=== PATIENT | male | born 1965 | race Caucasian/White ===

== ENCOUNTER 2024-10-11 15:20 | Inpatient (IN) | payer MEDICARE, BC ==
--- NOTE | 2024-10-11 15:57 | ED ---
General Adult HPI - General Chief complaint: Abdominal Pain Stated complaint: abd pain Time Seen by Provider: 10/11/24 15:26 Source: EMS Mode of arrival: EMS - History of Present Illness Initial comments: Dictation was produced using [employer] dictation software. please excuse any gram matical, word or spelling errors. Chief Complaint: 59-year-old male transfer from [facility] for acute appendicitis History of Present Illness: Patient 59-year-old male he was diagnosed with acute appendicitis at [facility]. He was scheduled to have surgery for appendectomy done however patient was having intractable fevers and worsening abdominal pain. Surgeon at [facility] did not feel comfortable operating on this patient due to concerns that he may need ICU placement after the surgery. Patient states he has been having pain for the last 6 or 7 days. States that his pain got significantly worse today. He had a CT scan and blood work performed. Patient was given antibiotics. The ROS documented in this emergency department record has been reviewed and con firmed by me. Those systems with pertinent positive or negative responses have been documented in the HPI. All other systems are other negative and/or noncontributory. - Related Data Allergies Allergy/AdvReac Type Severity Reaction Status Date / Time No Known Allergies Allergy Verified 10/11/24 15:30 Review of Systems ROS Statement: Those systems with pertinent positive or pertinent negative responses have been documented in the HPI. ROS Other: All systems not noted in ROS Statement are negative. Past Medical History Past Medical History: No Reported History Past Surgical History: Back Surgery Additional Past Surgical History / Comment(s): Fusion and screws, R knee surgery Smoking Status: Never smoker Past Alcohol Use History: Occasional Past Drug Use History: None Reported General Exam - General Exam Comments Initial Comments: PHYSICAL EXAM: General Impression: Alert and oriented x3, malaised HEENT: Normocephalic atraumatic, extra-ocular movements intact, pupils equal and reactive to light bilaterally, mucous membranes moist. Cardiovascular: Heart regular rate and rhythm Chest: Able to complete full sentences, no retractions, no tachypnea Abdomen: abdomen soft, n right lower quadrant palpatory tenderness r, non- distended, no organomegaly Musculoskeletal: Pulses present and equal in all extremities, no peripheral edema Motor: no focal deficits noted Neurological: CN II-XII grossly intact, no focal motor or sensory deficits noted Skin: Intact with no visualized rashes Psych: Normal affect and mood Course Vital Signs 10/11/24 10/11/24 10/11/24 15:22 16:30 17:18 Temperature 102.9 F H 100.8 F H Pulse Rate 134 H 123 H Respiratory 18 18 Rate Blood Pressure 160/95 153/91 O2 Sat by Pulse 94 L 93 L Oximetry 10/11/24 18:07 Temperature 100.3 F H Pulse Rate Respiratory Rate Blood Pressure O2 Sat by Pulse Oximetry Medical Decision Making - Medical Decision Making Was pt. sent in by a medical professional or institution (, PA, MINE GEOLOGIST, urgent care, hospital, or custodial...) When possible be specific @ -Transfer from outpatient ER Did you speak to anyone other than the patient for history (EMS, parent, family, police, friend...)? What history was obtained from this source @ -Significant at the other at the bedside Did you review nursing and triage notes (agree or disagree)? Why? @ -I reviewed and agree with nursing and triage notes Were old charts reviewed (outside hosp., previous admission, EMS record, old EKG, old radiological studies, urgent care reports/EKG's, custodial records)? Report findings @ -Outside ER charts reviewed Differential Diagnosis (chest pain, altered mental status, abdominal pain women, abdominal pain men, vaginal bleeding, musculoskeletal, weakness, fever, dyspnea, syncope, headache, dizziness, GI bleed, back pain, seizure, CVA, palpatations, mental health)? @ -Differential abdominal pain min EKG interpreted by me (3pts min.). @ -None done X-rays interpreted by me (1pt min.). @ -None done CT interpreted by me (1pt min.). @ -CT abdomen pelvis shows acute uncomplicated appendicitis U/S interpreted by me (1pt. min.). @ -None done What testing was considered but not performed or refused? (CT, X-rays, U/S, labs)? Why? @ -None What meds were considered but not given or refused? Why? @ -None Was smoking cessation discussed for >3mins.? @ -No Were there social determinants of health that impacted care today? How? (Homelessness, low income, unemployed, alcoholism, drug addiction, transpor tation, low edu. Level, literacy, decrease access to med. care, shelter, rehab)? @ -No Was there de-escalation of care discussed even if they declined (Discuss DNR or withdrawal of care, Hospice)? DNR status @ -No What co-morbidities impacted this encounter? (DM, HTN, Smoking, COPD, CAD, Cancer, CVA, ARF, Chemo, Hep., AIDS, mental health diagnosis, sleep apnea, morbid obesity)? @ -None Was patient admitted / discharged? Hospital course, mention meds given and route, prescriptions, significant lab abnormalities, going to OR and other pertinent info. @ -59-year-old male transferred from outside emergency department for acute appendicitis. There was concern perhaps that he had ruptured and would need ICU admission for peritonitis. Vital signs shows pyrexia of 102.9 upon arrival with heart rate of 134 likely secondary to febrile reaction causing tachycardia. Case was discussed with general surgeon who recommended repeating CT film to evaluate for any interval changes. CT was ordered showing acute uncomplicated appendicitis. Labs are within acceptable limits. Dr. Mao was notified of the CT results states that he will be boarded for tomorrow. Remain antibiotics will be admitted with consultation to medicine. Did you discuss the management of the patient with other professionals (professionals i.e. , PA, MINE GEOLOGIST, lab, RT, psych nurse, director of social services, associate director of development, teacher, disabilities services officer, registered nurse hh case manager)? Give summary @ -As above Was critical care preformed (if so, how long)? @ -No Undiagnosed new problem with uncertain prognosis? @ -No Drug Therapy requiring intensive monitoring for toxicity (Heparin, Nitro, Insulin, Cardizem)? @ -No Were any procedures done? @ -No Diagnosis/symptom? Acute, or Chronic, or Acute on Chronic? Uncomplicated (without systemic symptoms) or Complicated (systemic symptoms)? @ -Acute appendicitis Side effects of treatment? @ -No Exacerbation, Progression, or Severe Exacerbation? @ -No Poses a threat to life or bodily function? How? (Chest pain, [place], [place], pneumonia, PE, COPD, DKA, ARF, appy, cholecystitis, CVA, Diverticulitis, Homicidal, Suicidal, threat to staff... and all critical care pts) @ -yes - Lab Data Result diagrams: 10/11/24 15:58 10/11/24 15:58 Lab Results 10/11/24 10/11/24 10/11/24 Range/Units 15:58 15:58 15:58 WBC 12.6 H (3.8-10.6) k/uL RBC 4.89 (4.30-5.90) m/uL Hgb 15.3 (13.0-17.5) gm/dL Hct 43.6 (39.0-53.0) % MCV 89.1 (80.0-100.0) fL MCH 31.4 (25.0-35.0) pg MCHC 35.2 (31.0-37.0) g/dL RDW 13.0 (11.5-15.5) % Plt Count 197 (150-450) k/uL MPV 8.1 Neutrophils % 86 % Lymphocytes % 9 % Monocytes % 4 % Eosinophils % 1 % Basophils % 0 % Neutrophils # 10.8 H (1.3-7.7) k/uL Lymphocytes # 1.1 (1.0-4.8) k/uL Monocytes # 0.5 (0-1.0) k/uL Eosinophils # 0.1 (0-0.7) k/uL Basophils # 0.0 (0-0.2) k/uL PT 11.5 (10.0-12.5) sec INR 1.1 (<1.2) APTT 29.3 (22.0-30.0) sec Sodium 137 (137-145) mmol/L Potassium 4.3 (3.5-5.1) mmol/L Chloride 105 (98-107) mmol/L Carbon Dioxide 25 (22-30) mmol/L Anion Gap 7 mmol/L BUN 13 (9-20) mg/dL Creatinine 0.90 (0.66-1.25) mg/dL Est GFR (CKD-EPI)AfAm >90 (>60 ml/min/1.73 sqM) Est GFR (CKD-EPI)NonAf >90 (>60 ml/min/1.73 sqM) Glucose 100 H (74-99) mg/dL Plasma Lactic Acid Stanford (0.7-2.0) mmol/L Calcium 8.9 (8.4-10.2) mg/dL Total Bilirubin 1.6 H (0.2-1.3) mg/dL AST 26 (17-59) U/L ALT 17 (4-49) U/L Alkaline Phosphatase 79 (38-126) U/L Total Protein 6.3 (6.3-8.2) g/dL Albumin 3.8 (3.5-5.0) g/dL 10/11/24 Range/Units 15:58 WBC (3.8-10.6) k/uL RBC (4.30-5.90) m/uL Hgb (13.0-17.5) gm/dL Hct (39.0-53.0) % MCV (80.0-100.0) fL MCH (25.0-35.0) pg MCHC (31.0-37.0) g/dL RDW (11.5-15.5) % Plt Count (150-450) k/uL MPV Neutrophils % % Lymphocytes % % Monocytes % % Eosinophils % % Basophils % % Neutrophils # (1.3-7.7) k/uL Lymphocytes # (1.0-4.8) k/uL Monocytes # (0-1.0) k/uL Eosinophils # (0-0.7) k/uL Basophils # (0-0.2) k/uL PT (10.0-12.5) sec INR (<1.2) APTT (22.0-30.0) sec Sodium (137-145) mmol/L Potassium (3.5-5.1) mmol/L Chloride (98-107) mmol/L Carbon Dioxide (22-30) mmol/L Anion Gap mmol/L BUN (9-20) mg/dL Creatinine (0.66-1.25) mg/dL Est GFR (CKD-EPI)AfAm (>60 ml/min/1.73 sqM) Est GFR (CKD-EPI)NonAf (>60 ml/min/1.73 sqM) Glucose (74-99) mg/dL Plasma Lactic Acid Stanford 1.1 (0.7-2.0) mmol/L Calcium (8.4-10.2) mg/dL Total Bilirubin (0.2-1.3) mg/dL AST (17-59) U/L ALT (4-49) U/L Alkaline Phosphatase (38-126) U/L Total Protein (6.3-8.2) g/dL Albumin (3.5-5.0) g/dL Disposition Clinical Impression: Acute appendicitis Disposition: ADMITTED IP TO THIS HOSP Condition: Fair Referrals: Dino Issa MD [Primary Care Provider] - 1-2 days Decision Time: 16:30
[2024-10-11 16:04] LABS: Basophils % (A) 0 %; Eosinophils # (A) 0.1 k/uL (0-0.7); Eosinophils % (A) 1 %; HCT 43.6 % (39.0-53.0); HGB 15.3 gm/dL (13.0-17.5); Lymphocytes # (A) 1.1 k/uL (1.0-4.8); Lymphocytes % (A) 9 %; MCH 31.4 pg (25.0-35.0); MCHC 35.2 g/dL (31.0-37.0); MCV 89.1 fL (80.0-100.0); Mean Platelet Volume 8.1; Monocytes # (A) 0.5 k/uL (0-1.0); Monocytes % (A) 4 %; Neutrophils # (A) 10.8 k/uL (1.3-7.7); Neutrophils % (A) 86 %; Platelet Count 197 k/uL (150-450); RBC 4.89 m/uL (4.30-5.90); WBC 12.6 k/uL (3.8-10.6)
[2024-10-11] MEDS: ACETAMINOPHEN IV (For NPO) 1,000 MG in EMPTY BAG 1 BAG IVPB STA (16:07)
--- NOTE | 2024-10-11 16:08 | XR ---
EXAMINATION TYPE: XR chest 1V portable DATE OF EXAM: 10/11/2024 4:03 PM COMPARISON: None. CLINICAL INDICATION: Male, 59 years old with history of fever, TECHNIQUE: XR chest 1V portable view(s) obtained. FINDINGS: The heart size is normal. The pulmonary vasculature is normal. There is some mild bibasilar streak atelectasis which changes between inspirations. IMPRESSION: 1. Mild bibasilar atelectasis. 2. Follow up can be performed to evaluate for developing pneumonia. [facility], Workstation: [facility], 10/11/2024 4:06 PM
[2024-10-11] MEDS: HYDROmorphone 1 MG/ML 1 ML SYRINGE IVP STA (16:12)
[2024-10-11 16:18] LABS: INR 1.1 (<1.2); Partial Thromboplastin Time 29.3 sec (22.0-30.0); Prothrombin Time 11.5 sec (10.0-12.5)
[2024-10-11 16:28] LABS: ALT 17 U/L (4-49); AST 26 U/L (17-59); African American GFR (CKD) >90 (>60 ml/min/1.73 sqM); Albumin 3.8 g/dL (3.5-5.0); Alkaline Phosphatase 79 U/L (38-126); Anion Gap 7 mmol/L; Blood Urea Nitrogen 13 mg/dL (9-20); Calcium 8.9 mg/dL (8.4-10.2); Carbon Dioxide 25 mmol/L (22-30); Chloride 105 mmol/L (98-107); Glucose 100 mg/dL (74-99); Non-African American GFR(CKD) >90 (>60 ml/min/1.73 sqM); Potassium 4.3 mmol/L (3.5-5.1); Sodium 137 mmol/L (137-145); Total Bilirubin 1.6 mg/dL (0.2-1.3); Total Protein 6.3 g/dL (6.3-8.2)
--- NOTE | 2024-10-11 17:26 | CT ---
EXAMINATION TYPE: CT abdomen pelvis wo con DATE OF EXAM: 10/11/2024 HISTORY: Pt presents to ED due to appendicitis/possible peritonitis. CT DLP: 998.8 mGycm. Automated Exposure Control for Dose Reduction was Utilized. TECHNIQUE: CT scan of the abdomen and pelvis is performed without oral or IV COMPARISON: NONE FINDINGS: Within the limitations of a non-contrast study, the following observations are made. LUNG BASES: Posterior bibasilar consolidation and/or atelectasis. LIVER/GB: Multiple small dependent gallstones. Liver is heterogeneously hypodense consistent with fat ty infiltrative hepatocellular disease. PANCREAS: No significant abnormality is seen. SPLEEN: No significant abnormality is seen. ADRENALS: No significant abnormality is seen. KIDNEYS: Contrast excretion in the collecting systems and bladder.. BOWEL: Scattered colonic diverticula with most prominent diverticulosis involving sigmoid colon. No c onvincing evidence for acute diverticulitis. Abnormal dilated appendix up to 19 mm axial image 112 wi th central appendicoliths and moderate to severe ill-defined surrounding fluid and fat stranding. No free air. No well-formed fluid collection or abscess. GENITAL ORGANS: No gross abnormality seen. LYMPH NODES: Prominent but subcentimeter lymph nodes in the right lower quadrant mesentery. OSSEOUS STRUCTURES: Postsurgical change L5-S1 level is present.. OTHER: Small fat-containing right inguinal and moderate-sized fat-containing left inguinal hernias. T iny fat-containing umbilical hernia. Mild atherosclerotic change of the abdominal aorta. IMPRESSION: CT findings consistent with uncomplicated acute appendicitis as detailed above. [facility], , 10/11/2024 5:24 PM
[2024-10-11] MEDS ORDERED: NALOXONE 0.4 MG/ML 1 ML VIAL IV PRN (17:59)
[2024-10-11] MEDS ORDERED: IBUPROFEN 400 MG TAB PO PRN (17:59)
[2024-10-11] MEDS: PIPERACILLIN-TAZOBACTAM 3.375 GM in SODIUM CHLORIDE 0.9% 100 ML IVPB ONE (18:15)
[2024-10-11] MEDS: KETOROLAC 15 MG/ML 1 ML VIAL IVP STA (18:15)
[2024-10-11] MEDS: SODIUM CHLORIDE 0.9% 1,000 ML IV SCH (18:15)
[2024-10-11] MEDS ORDERED: SILDENAFIL 20 MG TAB PO PRN (20:44)
[2024-10-11] MEDS ORDERED: SEMAGLUTIDE 1 MG/0.5 ML SQ SCH (20:45)
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
[2024-10-11] MEDS ORDERED: HYDROmorphone (PF) 1 MG/ML ONE (22:08)
[2024-10-11] MEDS ORDERED: NEOSTIGMINE 1 MG/ML 10 ML VIAL ONE (22:08)
[2024-10-11] MEDS ORDERED: SUCCINYLCHOLINE CHLORIDE 200 MG/10 ML VIAL IV ONE (22:08)
[2024-10-11] MEDS ORDERED: PROPOFOL 10 MG/ML 20 ML VIAL IV ONE (22:08)
[2024-10-11] MEDS ORDERED: GLYCOPYRROLATE 0.2 MG/ML 2 ML VIAL ONE (22:08)
[2024-10-11] MEDS ORDERED: METOPROLOL TARTRATE 5 MG/5 ML VIAL IVP ONE (22:08)
[2024-10-11] MEDS ORDERED: fentaNYL (PF) 50 MCG/ML 2 ML AMP ONE (22:08)
[2024-10-11] MEDS ORDERED: DEXAMETHASONE SOD PHOSPHATE 4 MG/ML 1 ML VIAL ONE (22:08)
[2024-10-11] MEDS ORDERED: ROCURONIUM 10 MG/ML (5 ML VIAL) IV ONE (22:08)
[2024-10-11] MEDS ORDERED: KETOROLAC 15 MG/ML 1 ML VIAL ONE (22:08)
[2024-10-11] MEDS ORDERED: MIDAZOLAM 2 MG/2 ML VIAL ONE (22:08)
[2024-10-11] MEDS ORDERED: ONDANSETRON 4 MG/2 ML VIAL ONE (22:08)
[2024-10-11] MEDS: IV FLUID CONTINUATION 800 ML IV ONE (22:16)
[2024-10-11] MEDS: BUPIVACAINE (PF) 0.25% 30 ML VIAL SQ ONE (22:40)
[2024-10-11] MEDS: LACTATED RINGERS 1,000 ML IV ONE (23:00)
[2024-10-12] MEDS: FENOFIBRATE 160 MG TAB PO SCH (00:35)
[2024-10-12] MEDS: lisinopriL 10 MG TAB PO SCH (00:35)
[2024-10-12] MEDS: ALPRAZolam 1 MG TAB PO SCH (00:35)
[2024-10-12] MEDS: METOPROLOL TARTRATE 25 MG TAB PO SCH (00:52)
[2024-10-12] MEDS: metroNIDAZOLE-NS PMX 500 MG in SALINE 1 100ML.BAG IVPB SCH (00:52)
[2024-10-12] MEDS: PIPERACILLIN-TAZOBACTAM 3.375 GM in SODIUM CHLORIDE 0.9% 100 ML IVPB SCH (02:20)
[2024-10-12] MEDS: HYDROmorphone 1 MG/ML 1 ML SYRINGE IVP PRN (03:44)
[2024-10-12] MEDS: DULoxetine HCL 30 MG CAPSULE.DR PO SCH (08:52)
[2024-10-12 09:35] LABS: Basophils % (A) 0 %; Eosinophils # (A) 0.1 k/uL (0-0.7); Eosinophils % (A) 1 %; HCT 42.9 % (39.0-53.0); HGB 14.5 gm/dL (13.0-17.5); Lymphocytes # (A) 0.9 k/uL (1.0-4.8); Lymphocytes % (A) 7 %; MCH 31.1 pg (25.0-35.0); MCHC 33.9 g/dL (31.0-37.0); MCV 91.8 fL (80.0-100.0); Monocytes # (A) 0.3 k/uL (0-1.0); Monocytes % (A) 2 %; Neutrophils # (A) 12.9 k/uL (1.3-7.7); Neutrophils % (A) 90 %; Platelet Count 206 k/uL (150-450); RBC 4.67 m/uL (4.30-5.90); RDW 12.7 % (11.5-15.5); WBC 14.3 k/uL (3.8-10.6)
[2024-10-12 10:05] LABS: African American GFR (CKD) >90 (>60 ml/min/1.73 sqM); Anion Gap 7 mmol/L; Blood Urea Nitrogen 13 mg/dL (9-20); Calcium 8.8 mg/dL (8.4-10.2); Carbon Dioxide 22 mmol/L (22-30); Chloride 107 mmol/L (98-107); Glucose 129 mg/dL (74-99); Non-African American GFR(CKD) >90 (>60 ml/min/1.73 sqM); Potassium 4.2 mmol/L (3.5-5.1); Sodium 136 mmol/L (137-145)
[2024-10-12] MEDS: ACETAMINOPHEN TAB 325 MG TAB PO PRN (11:57)
--- NOTE | 2024-10-12 15:13 | P.PN ---
Subjective Progress Note Date: 10/12/24 SURGICAL PROGRESS NOTE CHIEF COMPLAINT: Perforated appendicitis HISTORY OF PRESENT ILLNESS: Postop day #1 status post laparoscopic appendectomy for perforated appendicitis. Patient's pain is controlled. He is having flatus. He is requesting advancement of diet. ANGE drain serosanguineous output. Afebrile. WBC did go up from 12.6-14.3 PHYSICAL EXAM: VITAL SIGNS: Reviewed. GENERAL: Well-developed in no acute distress. HEENT: No sclera icterus. Extraocular movements grossly intact. Moist buccal mucosa. Head is atraumatic, normocephalic. ABDOMEN: Soft. Nondistended. Incision sites with minimal dried blood noted at the distal incision. Other incision sites clean dry and intact. NEUROLOGIC: Alert and oriented. Cranial nerves II through XII grossly intact. ASSESSMENT: 1. Perforated appendicitis PLAN: -Advance diet to clear liquids -[place] added for oral pain medication -Continue antibiotics -Repeat CBC in a.m. -Continue IV fluids -Encourage incentive spirometer use -Encourage patient to ambulate -GI prophylaxis Pepcid and DVT prophylaxis subcu heparin Physician Multi Operation Machine Operator note has been reviewed by physician. Signing provider agrees with the documented findings, assessment, and plan of care. Attestation Patient seen and examined at bedside. Postop day #1 status post laparoscopic appendectomy for ruptured appendicitis. Patient appears to be doing well. States he does have soreness around his incision sites. We will advance to clear liquid diet. Continue IV antibiotics. Continue to monitor ANGE output. Pain control and increased activity recommended. Megan Almanza, DO Objective - Vital Signs Vital signs: Vital Signs Temp 99.2 F 10/12/24 13:55 Pulse 110 H 10/12/24 13:55 Resp 16 10/12/24 13:55 BP 141/88 10/12/24 13:55 Pulse Ox 93 L 10/12/24 07:10 FiO2 Intake & Output 10/11/24 10/12/24 10/12/24 18:59 06:59 18:59 Intake Total 100 1300 Output Total 830 Balance 100 470 Weight 122.47 kg 122.47 kg Intake: IV 100 1300 Output: Urine 800 Estimated Blood Loss 30 Other: # Voids 1 - Labs CBC & Chem 7: 10/12/24 09:14 10/12/24 09:14 Labs: Abnormal Lab Results - Last 24 Hours (Table) 10/11/24 10/11/24 10/12/24 Range/Units 15:58 15:58 09:14 WBC 12.6 H 14.3 H (3.8-10.6) k/uL Neutrophils # 10.8 H 12.9 H (1.3-7.7) k/uL Lymphocytes # 0.9 L (1.0-4.8) k/uL Sodium (137-145) mmol/L Glucose 100 H (74-99) mg/dL Total Bilirubin 1.6 H (0.2-1.3) mg/dL 10/12/24 Range/Units 09:14 WBC (3.8-10.6) k/uL Neutrophils # (1.3-7.7) k/uL Lymphocytes # (1.0-4.8) k/uL Sodium 136 L (137-145) mmol/L Glucose 129 H (74-99) mg/dL Total Bilirubin (0.2-1.3) mg/dL
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
[2024-10-12] MEDS: HEPARIN SODIUM,PORCINE 5,000 UNIT/ML 1 ML VIAL SQ SCH (19:56)
[2024-10-12] MEDS: HYDROcodone/APAP 5-325MG 1 EACH TAB PO PRN (19:58)
[2024-10-12] MEDS: FAMOTIDINE 20 MG TAB PO SCH (19:58)
[2024-10-13 08:45] LABS: Basophils # (A) 0.02 X 10*3/uL (0.00-0.10); Basophils % (A) 0.2 %; Eosinophils # (A) 0.08 X 10*3/uL (0.04-0.35); Eosinophils % (A) 0.8 %; HCT 38.6 % (39.6-50.0); HGB 12.8 g/dL (13.0-17.0); Lymphocytes # (A) 1.22 X 10*3/uL (0.90-5.00); Lymphocytes % (A) 11.9 %; MCH 31.1 pg (27.0-32.0); MCHC 33.2 g/dL (32.0-37.0); MCV 93.9 FL (80.0-97.0); Mean Platelet Volume 11.3 FL (9.5-12.2); Monocytes # (A) 0.65 X 10*3/uL (0.20-1.00); Monocytes % (A) 6.4 %; NRBC Per 100 WBC 0 X 10*3/uL (0.00-0.01); Neutrophils # (A) 8.23 X 10*3/uL (1.80-7.70); Neutrophils % (A) 80.4 %; Platelet Count 164 X 10*3/uL (140-440); RBC 4.11 X 10*6/uL (4.40-5.60); RDW 12.9 % (11.5-14.5); WBC 10.23 X 10*3/uL (4.50-10.00)
[2024-10-13 09:13] LABS: ALT 11 U/L (10-49); AST 19 U/L (14-35); Albumin 3.1 g/dL (3.8-4.9); Albumin/Globulin Ratio 1.72 Ratio (1.60-3.17); Alkaline Phosphatase 66 U/L (41-126); BUN/Creat Ratio 12.71 Ratio (12.00-20.00); Blood Urea Nitrogen 8.9 mg/dL (9.0-27.0); Calcium 8.4 mg/dL (8.7-10.3); Carbon Dioxide 24.1 mmol/L (21.6-31.8); Chloride 107 mmol/L (96-109); Globulin 1.8 g/dL (1.6-3.3); Glucose 95 mg/dL (70-110); Potassium 4.4 mmol/L (3.5-5.5); Sodium 140 mmol/L (135-145); Total Bilirubin 0.7 mg/dL (0.3-1.2); Total Protein 4.9 g/dL (6.2-8.2)
--- NOTE | 2024-10-13 14:10 | P.PN ---
Subjective Progress Note Date: 10/13/24 SURGICAL PROGRESS NOTE CHIEF COMPLAINT: Perforated appendicitis HISTORY OF PRESENT ILLNESS: Postop day #2 status post laparoscopic appendectomy for perforated appendicitis. Patient's pain is controlled. He is having flatus. He does feel bloated. Afebrile. Tachycardia improved. WBC is down from 14.3-10.23 Hgb 12.8. ANGE drain 20 mL serosanguineous output PHYSICAL EXAM: VITAL SIGNS: Reviewed. GENERAL: Well-developed in no acute distress. HEENT: No sclera icterus. Extraocular movements grossly intact. Moist buccal mucosa. Head is atraumatic, normocephalic. ABDOMEN: Soft. Nondistended. Incision sites with minimal dried blood noted at the distal incision. Other incision sites clean dry and intact. NEUROLOGIC: Alert and oriented. Cranial nerves II through XII grossly intact. ASSESSMENT: 1. Perforated appendicitis PLAN: -Continue clear liquid diet. Recommended no straws or carbonated beverages -Encourage patient to ambulate -Continue to monitor ANGE drain output -Continue pain management -Continue antibiotics -Repeat CBC in a.m. -Decrease IV fluids to 75 mL/h -Encourage incentive spirometer use -Encourage patient to ambulate -GI prophylaxis Pepcid and DVT prophylaxis subcu heparin Physician [employer] Ch[employer] Inspector note has been reviewed by physician. Signing provider agrees with the documented findings, assessment, and plan of care. Attestation Patient seen and examined at bedside. Status post laparoscopic appendectomy, postoperative day #2. Pain is better controlled today. ANGE drain with serosanguineous minimal output. Leukocytosis improving. Patient does complain of some bloating but states he had flatus. Continue IV antibiotics. Continue IV fluids. Megan Almanza DO Objective - Vital Signs Vital signs: Vital Signs Temp 98.7 F 10/13/24 07:38 Pulse 99 10/13/24 07:38 Resp 18 10/13/24 07:38 BP 141/87 10/13/24 07:38 Pulse Ox 94 L 10/13/24 07:38 FiO2 Intake & Output 10/12/24 10/13/24 10/13/24 18:59 06:59 18:59 Output Total 20 Balance -20 Output: Drainage 20 Lower Abdomen 20 Other: # Voids 4 1 - Labs CBC & Chem 7: 10/13/24 04:40 10/13/24 04:40 Labs: Abnormal Lab Results - Last 24 Hours (Table) 10/13/24 10/13/24 Range/Units 04:40 04:40 WBC 10.23 H (4.50-10.00) X 10*3/uL RBC 4.11 L (4.40-5.60) X 10*6/uL Hgb 12.8 L (13.0-17.0) g/dL Hct 38.6 L (39.6-50.0) % Neutrophils # 8.23 H (1.80-7.70) X 10*3/uL BUN 8.9 L (9.0-27.0) mg/dL Calcium 8.4 L (8.7-10.3) mg/dL Total Protein 4.9 L (6.2-8.2) g/dL Albumin 3.1 L (3.8-4.9) g/dL
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
[2024-10-14 09:59] LABS: Basophils # (A) 0.02 X 10*3/uL (0.00-0.10); Basophils % (A) 0.3 %; Eosinophils % (A) 3.1 %; HCT 35.9 % (39.6-50.0); HGB 12.1 g/dL (13.0-17.0); Lymphocytes % (A) 18.3 %; MCH 30.5 pg (27.0-32.0); MCHC 33.7 g/dL (32.0-37.0); MCV 90.4 FL (80.0-97.0); Mean Platelet Volume 10.7 FL (9.5-12.2); Monocytes # (A) 0.42 X 10*3/uL (0.20-1.00); Monocytes % (A) 6.4 %; NRBC Per 100 WBC 0 X 10*3/uL (0.00-0.01); Neutrophils # (A) 4.69 X 10*3/uL (1.80-7.70); Neutrophils % (A) 71.6 %; Platelet Count 177 X 10*3/uL (140-440); RBC 3.97 X 10*6/uL (4.40-5.60); RDW 12.8 % (11.5-14.5); WBC 6.55 X 10*3/uL (4.50-10.00)
--- NOTE | 2024-10-14 13:47 | P.PN ---
Subjective Progress Note Date: 10/14/24 Patient seen and examined at bedside. Doing well. Pain well-controlled. Had bowel movement. Objective - Vital Signs Vital signs: Vital Signs Temp 98.3 F 10/14/24 13:31 Pulse 92 10/14/24 13:31 Resp 18 10/14/24 13:31 BP 131/84 10/14/24 13:31 Pulse Ox 95 10/14/24 13:31 FiO2 Intake & Output 10/13/24 10/14/24 10/14/24 18:59 06:59 18:59 Intake Total 1620 540 Output Total 975 Balance 645 540 Intake: Oral 1620 540 Output: Urine 975 Other: Voiding Method Toilet Urinal # Voids 3 - Constitutional General appearance: Present: cooperative, no acute distress - Gastrointestinal Gastrointestinal Comment(s): Soft, nontender, ANGE drain in place, incisions healing well - Labs CBC & Chem 7: 10/14/24 03:56 10/13/24 04:40 Labs: Abnormal Lab Results - Last 24 Hours (Table) 10/14/24 Range/Units 03:56 RBC 3.97 L (4.40-5.60) X 10*6/uL Hgb 12.1 L (13.0-17.0) g/dL Hct 35.9 L (39.6-50.0) % Assessment and Plan Plan: Postoperative day #3 status post laparoscopic appendectomy for perforated appendicitis. Patient appears to be improving. Leukocytosis has improved. Continue ANGE at this time. Continue IV antibiotics. Diet advanced. Likely discharge in the next 24 hours.
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
[2024-10-15 08:52] VITALS: TEMP 98.5
[2024-10-15 08:53] VITALS: BP 145/95; PULSE 101; RESP 16
--- NOTE | 2024-10-15 09:36 | P.DS ---
Providers Date of admission: 10/11/24 17:59 Attending physician: Roman Mao DO Consults: 10/11/24 17:59 Consult Physician Routine Consulting Provider: Charlie Wolfe Reason/Comments: medicine consult Do you want consulting provider notified?: Yes Primary care physician: [facility] Course: 59-year-old male presented to the emergency department from outside facility secondary to severe abdominal pain. Found to have ruptured appendicitis. Underwent laparoscopic appendectomy with ANGE drain placement. Postoperatively, patient has had a course of improvement. Pain is improved and he is tolerating diet and having bowel function. Leukocytosis has resolved. Patient surgically stable for discharge with oral antibiotics and to continue ANGE care at home until removed in office. This was discussed with the patient. He is agreeable with plan. Assessment: Abdomen clean, dry and intact incision sites that appear to be healing well, ANGE drain in place Procedures: Laparoscopic appendectomy Patient Condition at Discharge: Fair Plan - Discharge Summary New Discharge Prescriptions: New Amoxic-Pot Clav 500-125 mg [Augmentin 500-125 mg] 1 tab PO Q12HR #10 tab HYDROcodone/APAP 5-325MG [Colwell 5-325] 1 each PO Q6HR PRN #12 tab PRN Reason: Pain Continue gemfibroziL [Lopid] 600 mg PO BID traMADol HCL 50 mg PO BID lisinopriL [Zestril] 10 mg PO HS Metoprolol Tartrate [Lopressor] 25 mg PO BID DULoxetine HCL [Cymbalta] 30 mg PO DAILY Semaglutide [Wegovy] 1 mg SQ WE Sildenafil [Revatio] 20 mg PO DAILY PRN PRN Reason: E.D. ALPRAZolam [Xanax] 2 mg PO HS Discharge Medication List ALPRAZolam [Xanax] 2 mg PO HS 10/11/24 [History] DULoxetine HCL [Cymbalta] 30 mg PO DAILY 10/11/24 [History] Metoprolol Tartrate [Lopressor] 25 mg PO BID 10/11/24 [History] Semaglutide [Wegovy] 1 mg SQ WE 10/11/24 [History] Sildenafil [Revatio] 20 mg PO DAILY PRN 10/11/24 [History] gemfibroziL [Lopid] 600 mg PO BID 10/11/24 [History] lisinopriL [Zestril] 10 mg PO HS 10/11/24 [History] traMADol HCL 50 mg PO BID 10/11/24 [History] Amoxic-Pot Clav 500-125 mg [Augmentin 500-125 mg] 1 tab PO Q12HR #10 tab 10/15/24 [Rx] HYDROcodone/APAP 5-325MG [Colwell 5-325] 1 each PO Q6HR PRN #12 tab 10/15/24 [Rx] Follow up Appointment(s)/Referral(s): Dino Issa MD [Primary Care Provider] - 1-2 days Roman Mao DO [Doctor of Osteopathic Medicine] - 10/24/24 Patient Instructions/Handouts: Tristen-Krishnan Drain Care (DC), Laparoscopic Appendectomy (DC) Activity/Diet/Wound Care/Special Instructions: Please refer to drain instruction handout Okay to shower Change dressings as needed No lifting greater than 10 pounds Discharge Disposition: HOME SELF-CARE
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
--- NOTE | 2024-12-08 08:30 | P.OP ---
Date of Procedure: 10/11/24 Preoperative Diagnosis: appendicitis Postoperative Diagnosis: appendicitis Procedure(s) Performed: Laparoscopic Appendectomy Anesthesia: HAI Surgeon: Roman Mao Pathology: other (appendix) Condition: stable Disposition: PACU Indications for Procedure: Patient is a 59 yo male presenting w/ abdominal pain and ct findings consistent with appendicitis Operative Findings: inflamed/dilated appendix Description of Procedure: Patient was brought to the operative suite where a timeout was performed and everyone agreed with the information recited. Next a number 15 blade was used to make an incision in the left upper quadrant and a visiport was used to gain access to the abdomen. Next, two more working ports were placed in the periumbilical region and a suprapubic region as well. The patient was placed in trendelenberg and right side up. The cecum was retracted revealing a large and inflamed appendix with wall narrowing suspicious for a small perforation. The appendix was then grasped and retracted towards the peritoneum and a ligasure device was used to take down the mesoappendix. A purple load endogia was used to resect the appendix. This was placed in an endocatch bag and removed out of the abdomen without spillage. The abdomen was suctioned and irrigated as there was some evidence of perforation in the gutter. A petrona drain was placed anticipating the patient may develop an abscess. This was secured using a 3-0 nylon suture. ll instruments were removed under direct visualization. The periumbilical incision was closed using 0 vicryl for fascia and 4-0 vicryl for the skin. The two skin incisions were closed using 4-0 vicryl suture as well. The patient tolerated the procedure and was transferred to pacu in stable condition.
== END 2024-10-15 13:11 | disposition home or self-care (01) | DRG 853 ==
LOC: EC 15:20 → 4SSUR 17:59
PROVIDERS: ADMIT Surgery; ATTEND Surgery
PROC: 0DTJ4ZZ Resection of Appendix, Percutaneous Endoscopic Approach (ICD-10-PCS; principal; 2024-10-11 22:00)
DX: A41.9 Sepsis, unspecified organism (principal); K35.33 Acute appendicitis with perforation, localized peritonitis, and gangrene, with abscess; Z68.41 Body mass index [BMI] 40.0-44.9, adult; I10 Essential (primary) hypertension; F32.A Depression, unspecified; K76.0 Fatty (change of) liver, not elsewhere classified; E78.5 Hyperlipidemia, unspecified; G89.29 Other chronic pain; F41.9 Anxiety disorder, unspecified; E66.01 Morbid (severe) obesity due to excess calories
CPT/HCPCS: 36415; 71045; 74176; 80048; 80053; 83605; 85025; 85610; 85730; 88304; 93005; 94660; 96365; 96367; 96375; 99285